=== PATIENT | female | born 1980 | race Caucasian/White ===

== ENCOUNTER 2019-11-26 11:26 | Emergency (ER) | payer MEDICAID ==
[~2019-11-26] VITALS: Ht 162.6 cm; Wt 63.5 kg
[~2019-11-26 11:26] MED LIST: NORCO 5-325 TA1 EACH PO
[2019-11-26 12:13] LABS: URINE BILIRUBIN NEGATIVE (Negative); URINE BLOOD NEGATIVE (Negative); URINE CLARITY CLEAR; URINE COLOR YELLOW; URINE GLUCOSE-RANDOM NEGATIVE (Negative); URINE KETONES NEGATIVE (Negative); URINE LEUKOCYTES-REFLEX NEGATIVE (Negative); URINE NITRITE-REFLEX NEGATIVE (Negative); URINE PROTEIN NEGATIVE (Negative); URINE UROBILINOGEN 0.2 E.U./dl (0.2-1.0)
[2019-11-26] MEDS ORDERED: ZOLOFT 50 MG TA50 M1 PO (12:31)
[2019-11-26] MEDS ORDERED: XANAX 0.25 MG0.25 MG PO (12:31)
[2019-11-26 12:37] VITALS: BP 121/68
[2019-11-26 14:39] LABS: AMP/METHAMP Negative (Negative); BARBITURATES Negative (Negative); BENZODIAZEPINES Negative (Negative); COCAINE Negative (Negative); METHADONE Negative (Negative); OPIATES Negative (Negative); PCP Negative (Negative); THC Negative (Negative)
== END 2019-11-26 12:38 | disposition home or self-care (01) ==
LOC: M.ERS 11:26
PROVIDERS: Personal Emergency Response Attendant
DX: F41.9 Anxiety disorder, unspecified (principal); F32.9 Major depressive disorder, single episode, unspecified; F17.210 Nicotine dependence, cigarettes, uncomplicated; Z88.8 Allergy status to other drugs, medicaments and biological substances

== ENCOUNTER 2020-02-23 11:35 | Emergency (ER) | payer OTHER, MEDICAID ==
[~2020-02-23] VITALS: Ht 162.6 cm; Wt 61.2 kg
[~2020-02-23 11:35] MED LIST changes: +XANAX 0.25 MG0.25 MG PO; +ZOLOFT 50 MG TA50 M1 PO
[2020-02-23] MEDS ORDERED: BUPROPION XL300 MG PO (11:46)
[2020-02-23] MEDS ORDERED: XANAX 0.5 MG0.5 MG PO (11:46)
[2020-02-23] MEDS ORDERED: MOOD STABILIZER (11:46)
[2020-02-23] MEDS ORDERED: XANAX 0.25 MG0.25 MG PO (11:55)
[2020-02-23 12:02] VITALS: BP 119/76
== END 2020-02-23 12:03 | disposition home or self-care (01) ==
LOC: M.ERS 11:35
DX: Z76.0 Encounter for issue of repeat prescription (principal); F41.9 Anxiety disorder, unspecified

== ENCOUNTER 2020-04-18 16:06 | Emergency (ER) | payer OTHER, MEDICAID ==
[~2020-04-18] VITALS: Ht 162.6 cm; Wt 59.0 kg
[~2020-04-18 16:06] MED LIST changes: +BUPROPION XL300 MG PO; +MOOD STABILIZER; +XANAX 0.5 MG0.5 MG PO
[2020-04-18] MEDS ORDERED: TRILEPTAL150 MG PO (16:18)
[2020-04-18] MEDS ORDERED: PRISTIQ50 M1 PO (16:18)
[2020-04-18] MEDS ORDERED: HYDROXYZINE HCL50 MG PO (16:19)
[2020-04-18 17:21] VITALS: BP 116/72
== END 2020-04-18 17:22 | disposition home or self-care (01) ==
LOC: M.ERS 16:06
DX: Z02.79 Encounter for issue of other medical certificate (principal); F41.9 Anxiety disorder, unspecified; F32.9 Major depressive disorder, single episode, unspecified

== ENCOUNTER 2020-09-22 13:24 | Emergency (ER) | payer OTHER, MEDICAID ==
[~2020-09-22] VITALS: Ht 162.6 cm; Wt 65.8 kg
[~2020-09-22 13:24] MED LIST changes: +HYDROXYZINE HCL50 MG PO; +PRISTIQ50 M1 PO; +TRILEPTAL150 MG PO
[2020-09-22 13:28] VITALS: BP 132/85
[2020-09-22] MEDS ORDERED: VIIBRYD20 MG PO (13:32)
== END 2020-09-22 14:41 | disposition home or self-care (01) ==
LOC: M.ERS 13:24
DX: Z53.21 Procedure and treatment not carried out due to patient leaving prior to being seen by health care provider (principal)

== ENCOUNTER 2020-09-27 11:26 | Emergency (ER) | payer OTHER, MEDICAID ==
[~2020-09-27] VITALS: Ht 162.6 cm; Wt 67.1 kg
[~2020-09-27 11:26] MED LIST changes: +VIIBRYD20 MG PO
[2020-09-27 13:04] LABS: ABSOLUTE BASOPHILS 0.1 thou/uL (0.0-0.2); ABSOLUTE EOSINOPHILS 0.2 thou/uL (0.0-0.7); ABSOLUTE LYMPHOCYTES 1.7 thou/uL (0.8-5.3); ABSOLUTE MONOCYTES 0.6 thou/uL (0.0-1.2); ABSOLUTE NEUTROPHILS 4.2 thou/uL (1.6-8.1); BASOPHILS 0.8 %; HEMATOCRIT 40.6 % (37.0-47.0); HEMOGLOBIN 13.4 gm/dL (12.0-15.0); LYMPHOCYTES 25.6 %; MCH 29.4 pg (26.0-34.0); MONOCYTES 8.7 %; MPV 9.5 fl. (7.2-11.1); NUCLEATED RBCS 0 /100WBC; PLATELET COUNT* 276 thou/uL (150-400); POLYS 61.9 %; RBC 4.56 mil/uL (4.20-5.00); RDW-CV 13.4 % (10.5-14.5); WBC 6.8 thou/uL (4.0-11.0)
[2020-09-27 13:05] LABS: CALCIUM 8.6 mg/dL (8.5-10.1); CREATININE 0.8 mg/dL (0.6-1.3); POTASSIUM 3.9 mmol/L (3.5-5.1)
[2020-09-27 13:06] LABS: URINE BILIRUBIN NEGATIVE (Negative); URINE BLOOD NEGATIVE (Negative); URINE CLARITY CLEAR; URINE COLOR YELLOW; URINE GLUCOSE-RANDOM NEGATIVE (Negative); URINE KETONES NEGATIVE (Negative); URINE LEUKOCYTES-REFLEX NEGATIVE (Negative); URINE NITRITE-REFLEX NEGATIVE (Negative); URINE PROTEIN NEGATIVE (Negative); URINE UROBILINOGEN 0.2 E.U./dl (0.2-1.0)
[2020-09-27 13:10] LABS: AMP/METHAMP Negative (Negative); BARBITURATES Negative (Negative); BENZODIAZEPINES Negative (Negative); COCAINE Negative (Negative); METHADONE Negative (Negative); OPIATES Negative (Negative); PCP Negative (Negative); THC Negative (Negative)
[2020-09-27 13:10] LABS: ALBUMIN 3.8 g/dL (3.4-5.0); APTT 26.4 Seconds (25.0-31.3); INR 0.9; TOTAL BILIRUBIN 0.3 mg/dL (<0.1-1.0)
[2020-09-27] MEDS ORDERED: ZPAK PO (16:00)
[2020-09-27 16:11] VITALS: BP 117/72
--- NOTE | 2020-09-28 12:17 | EKG ---
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
== END 2020-09-27 16:11 | disposition home or self-care (01) ==
LOC: M.ERS 11:26
PROVIDERS: Physician Assistant
DX: R51.9 Headache, unspecified (principal); R91.8 Other nonspecific abnormal finding of lung field; H57.04 Mydriasis; Z20.828 Contact with and (suspected) exposure to other viral communicable diseases

== ENCOUNTER 2021-01-16 16:47 | Emergency (ER) | payer OTHER, MEDICAID ==
[~2021-01-16] VITALS: Ht 162.6 cm; Wt 72.6 kg
[~2021-01-16 16:47] MED LIST changes: +ZPAK PO
[2021-01-16] MEDS ORDERED: LEXAPRO20 MG PO (16:56)
[2021-01-16] MEDS ORDERED: TRAMADOL 50 MG50 MG PO (17:04)
[2021-01-16] MEDS ORDERED: IBU600 MG PO (17:04)
[2021-01-16 17:16] VITALS: BP 134/79
== END 2021-01-16 17:14 | disposition home or self-care (01) ==
LOC: M.ERS 16:47
DX: K08.89 Other specified disorders of teeth and supporting structures (principal)

== ENCOUNTER 2021-03-10 17:18 | Emergency (ER) | payer OTHER, MEDICAID ==
[~2021-03-10] VITALS: Ht 162.6 cm; Wt 70.3 kg
[~2021-03-10 17:18] MED LIST changes: +IBU600 MG PO; +LEXAPRO20 MG PO; +TRAMADOL 50 MG50 MG PO
[2021-03-10] MEDS ORDERED: LEXAPRO20 MG PO ×3 (17:27→17:32)
[2021-03-10] MEDS ORDERED: ALPRAZOLAM 0.50.5 M1 PO ×3 (17:27→17:32)
[2021-03-10 17:28] VITALS: BP 130/85
== END 2021-03-10 17:33 | disposition home or self-care (01) ==
LOC: M.ERS 17:18
DX: F41.9 Anxiety disorder, unspecified (principal); F32.9 Major depressive disorder, single episode, unspecified; F43.10 Post-traumatic stress disorder, unspecified; Z79.899 Other long term (current) drug therapy

== ENCOUNTER 2021-03-17 11:39 | Emergency (ER) | payer OTHER, MEDICAID ==
[~2021-03-17] VITALS: Ht 162.6 cm; Wt 68.0 kg
[~2021-03-17 11:39] MED LIST changes: +ALPRAZOLAM 0.50.5 M1 PO
[2021-03-17] MEDS ORDERED: SINGULAIR 10 MG10 M1 PO (13:22)
[2021-03-17 14:01] VITALS: BP 108/78
== END 2021-03-17 14:02 | disposition home or self-care (01) ==
LOC: M.ERS 11:39
DX: J06.9 Acute upper respiratory infection, unspecified (principal); Z20.822 Contact with and (suspected) exposure to COVID-19; J30.9 Allergic rhinitis, unspecified; F32.9 Major depressive disorder, single episode, unspecified; F41.9 Anxiety disorder, unspecified; Z79.899 Other long term (current) drug therapy; Z87.891 Personal history of nicotine dependence

== ENCOUNTER 2021-09-09 08:49 | Emergency (ER) | payer OTHER, MEDICAID ==
[~2021-09-09] VITALS: Ht 162.6 cm; Wt 70.3 kg
[~2021-09-09 08:49] MED LIST changes: +SINGULAIR 10 MG10 M1 PO
[2021-09-09] MEDS ORDERED: HYDROXYZINE HCL50 MG PO (09:06)
[2021-09-09] MEDS ORDERED: DEPAKOTE250 MG PO (09:07)
[2021-09-09] MEDS ORDERED: VIBRID PO (09:08)
[2021-09-09 10:19] LABS: INFLUENZA A ANTIGEN Negative (Negative); INFLUENZA B ANTIGEN Negative (Negative)
[2021-09-09] MEDS ORDERED: TESSALON PERLE100 M1 PO (10:26)
[2021-09-09 10:42] VITALS: BP 105/71
== END 2021-09-09 10:43 | disposition home or self-care (01) ==
LOC: M.ERS 08:49
PROVIDERS: Emergency Medicine Emergency Medical Services
DX: J06.9 Acute upper respiratory infection, unspecified (principal); Z20.822 Contact with and (suspected) exposure to COVID-19; F41.9 Anxiety disorder, unspecified; F32.9 Major depressive disorder, single episode, unspecified; Z79.899 Other long term (current) drug therapy; Z87.891 Personal history of nicotine dependence